=== PATIENT | female | born 1990 | race African-American/Black ===

== ENCOUNTER 2016-11-25 22:14 | Emergency (ER) | payer OTHER ==
--- NOTE | ~2016-11-25 | EKG ---
PATIENT: MYESHA RECINOS UNIT #: [id number] Ventricular Rate: 74 BPM Atrial Rate: 74 BPM P-R Interval: 126 ms QRS Duration: 82 ms Q-T Interval: 352 ms QTC Calculation(Bezet): 390 ms P [place]: 46 degrees Calculated R [place]: 66 degrees Calculated T [place]: 52 degrees Diagnosis Line: Normal sinus rhythm with sinus arrhythmia Diagnosis Line: Normal ECG Diagnosis Line: When compared with ECG of 03-JUN-2015 02:24, Diagnosis Line: No significant change was found Diagnosis Line: Confirmed by BESSIE HAMILTON MD ([id number]) on Diagnosis Line: 11/28/2016 11:03:22 AM INTERPRETING MD: ALFONSO ALEX
[2016-11-25 23:39] LABS: BASOPHIL% 0.5 % (0-2.5); EOSINOPHIL# 0.1 X10e3 (0-0.7); EOSINOPHIL% 0.7 % (0.0-7.0); HEMATOCRIT 38.5 % (35.0-45.0); LYMPHOCYTE# 2.3 X10e3 (1.0-3.5); LYMPHOCYTE% 27.8 % (17.0-45.0); MEAN CELL VOLUME 84.9 FL (83-96); MEAN CORPUSCULAR HEMOGLOBIN 28.6 PG (28-34); MEAN CORPUSCULAR HGB CONC 33.7 g/dL (30-36); MONOCYTE# 0.7 X10e3 (0-1.0); MONOCYTE% 8.6 % (3.0-12.0); NEUTROPHIL# 5.1 X10e3 (1.5-7.1); NEUTROPHIL% 62.4 % (40-75); PLATELET COUNT 208 X10e3 (140-420); RED BLOOD COUNT 4.54 X10e (3.90-5.30); RED CELL DISTRIBUTION WIDTH 14.4 % (11.0-15.5); WHITE BLOOD COUNT 8.1 X10e3 (4.0-10.5)
[2016-11-25 23:41] LABS: DIFF IND NO
[2016-11-25 23:47] LABS: CALCIUM SERUM 9.3 mg/dL (8.4-10.2); CREATININE SERUM 0.8 mg/dL (0.6-1.4); GLOM FILT RATE Estimated 117.2 mL/min (>60); POTASSIUM 3.6 mmol/L (3.5-5.1)
[2016-11-26 00:23] LABS: POC - CKMB <1.0 ng/mL (0.0-7.9); POC - TROPONIN <0.05 ng/mL (<=0.05)
== END 2016-11-26 00:50 | disposition home or self-care (01) ==
LOC: SED 22:14
PROVIDERS: Emergency Medicine
DX: O99.611 Diseases of the digestive system complicating pregnancy, first trimester (principal); K21.9 Gastro-esophageal reflux disease without esophagitis
CPT/HCPCS: 36415; 80048; 82553; 84484; 84703; 85025; 93005; 96374; 99285

== ENCOUNTER 2016-12-18 21:33 | Emergency (ER) | payer OTHER ==
[~2016-12-18] VITALS: Ht 167.6 cm; Wt 63.5 kg
== END 2016-12-18 22:52 | disposition home or self-care (01) ==
LOC: SED 21:33
DX: J02.9 Acute pharyngitis, unspecified (principal); R59.0 Localized enlarged lymph nodes
CPT/HCPCS: 99283